=== PATIENT | female | born 1970 | race Caucasian/White ===

== ENCOUNTER 2017-09-06 22:00 | Emergency (ER) | payer MEDICARE, MEDICAID ==
[2017-09-06 23:59] VITALS: BP 134/85; TEMP 97.9
[2017-09-07] MEDS ORDERED: ALBUTEROL/IPRATROPIUM 1 VIAL SOL ONE (01:04)
[2017-09-07] MEDS: ALBUTEROL/IPRATROPIUM 1 VIAL SOL INH ONE (01:10)
[2017-09-07 01:26] VITALS: RESP 20; O2SAT 99
[2017-09-07] MEDS: PREDNISONE 20 MG TAB PO ONE (01:44)
[2017-09-07] MEDS ORDERED: PREDNISONE 20 MG TAB ONE (01:55)
[2017-09-07 02:15] VITALS: PULSE 78
== END 2017-09-07 02:13 | disposition home or self-care (01) | DRG 638 ==
LOC: ED 22:00
DX: E11.65 Type 2 diabetes mellitus with hyperglycemia (principal); J44.1 Chronic obstructive pulmonary disease with (acute) exacerbation; Z79.4 Long term (current) use of insulin; J20.9 Acute bronchitis, unspecified
CPT/HCPCS: 71046; 82962; 99283; A9270-GY